=== PATIENT | male | born 1975 | race Caucasian/White ===

== ENCOUNTER 2019-08-22 17:59 | Emergency (ER) | payer OTHER ==
[~2019-08-22] VITALS: Ht 175.3 cm; Wt 120.2 kg
[~2019-08-22 17:59] MED LIST: CODACE60
== END 2019-08-22 21:10 | disposition home or self-care (01) ==
LOC: ER 17:59
DX: R10.32 Left lower quadrant pain (principal)
CPT/HCPCS: 74176; 96372; 99283-25; J1885

== ENCOUNTER 2022-10-13 16:50 | Emergency (ER) | payer OTHER ==
[~2022-10-13] VITALS: Ht 170.2 cm; Wt 114.8 kg
[~2022-10-13 16:50] MED LIST changes: -LOSA25 PO
[2022-10-13 18:40] LABS: Calcium, Ionized (POC) 1.14 mmol/L (1.10-1.46); Chloride (POC) 106 mmol/L (98-108); Creatinine (POC) 0.7 mg/dL (0.8-1.3); Glucose (ISTAT POC) 331 mg/dL (70-99); Hemoglobin (POC) 12.9 g/dL (13.5-17.5); Potassium (POC) 3.9 mmol/L (3.5-5.5); Sodium (POC) 137 mmol/L (135-148); Total CO2 (POC) 23 mmol/L (21-32)
[2022-10-13 18:44] LABS: Magnesium, Blood 2.3 mg/dL (1.6-2.4)
[2022-10-13 18:47] LABS: Albumin, Blood 4.3 g/dL (3.4-5.0); Albumin/Globulin Ratio 1.3 (0.8-1.8); Beta-hydroxybutyrate 9.1 mg/dL (0.2-2.8); Bilirubin, Total 0.5 mg/dL (0.1-1.0); Bun/Creatinine Ratio 12.3 (12.0-20.0); Calcium, Blood 8.6 mg/dL (8.5-10.1); Creatinine, Blood 0.73 mg/dL (0.60-1.20); Globulin, Blood 3.2 g/dL (2.2-4.0); Phosphorus, Blood 3.1 mg/dL (2.5-4.9); Total Protein, Blood 7.5 g/dL (6.4-8.2)
[2022-10-13 18:52] LABS: Base Excess Venous -2.3 mmol/L; Bicarbonate Venous 22.5 mmol/L (24.0-30.0); PCO2 Venous 39.3 mmHg (38-42); pH Blood Venous 7.38 (7.34-7.37)
[2022-10-13 19:07] LABS: Source, Urine Clean Catch
[2022-10-13 19:13] LABS: Appearance, Urine Clear (Clear); Bilirubin, Urine Neg (Neg); Blood, Urine Neg (Neg); Color, Urine Pale Yellow (P-Yellow); Glucose Qualitative, Urine 4+ (Neg); Ketones, Urine 3+ (Neg); Leukocyte Esterase, Urine Neg (Neg); Nitrite, Urine Neg (Neg); Protein, Urine Neg (Neg); Urobilinogen, Urine NORM (Normal)
[2022-10-13 22:34] LABS: Thyroid Stimulating Hormone 1.59 uIU/mL (0.360-4.800)
[2022-10-13] MEDS ORDERED: LOSA25 PO (22:59)
[2022-10-13 23:34] VITALS: BP 135/96
== END 2022-10-13 23:15 | disposition home or self-care (01) ==
LOC: ER 16:50
PROVIDERS: Student in an Organized Health Care Education/Training Program
DX: E11.65 Type 2 diabetes mellitus with hyperglycemia (principal); R00.0 Tachycardia, unspecified; I44.7 Left bundle-branch block, unspecified; Z79.899 Other long term (current) drug therapy; G43.909 Migraine, unspecified, not intractable, without status migrainosus; I10 Essential (primary) hypertension; F17.200 Nicotine dependence, unspecified, uncomplicated
CPT/HCPCS: 80047; 80053; 81003; 82010; 82803; 82947; 83036; 83690; 83735; 84100; 84443; 84484; 85014; 85025; 93005; 93010; 96360; 96361; 99284-25; J1815; J7030

== ENCOUNTER → 2022-10-13 | Outpatient (CLI) | payer OTHER ==
[~2022-10-13] MED LIST changes: +LOSA25 PO
[2022-10-13 16:16] LABS: BASOPHILS ABSOLUTE AUTO 0.05 K/mm3 (0.00-0.23); BASOPHILS PERCENT AUTO 1 % (0-2); EOSINOPHILS ABSOLUTE AUTO 0.27 K/mm3 (0.00-0.68); EOSINOPHILS PERCENT AUTO 3 % (0-6); Hematocrit 43.7 % (37.0-53.0); Hemoglobin 16.1 g/dL (13.5-17.5); IMMATURE GRAN ABSOLUTE AUTO 0.06 K/mm3 (0.00-0.10); IMMATURE GRAN PERCENT AUTO 1 % (0-1); LYMPHOCYTES ABSOLUTE AUTO 2.72 K/mm3 (0.84-5.20); LYMPHOCYTES PERCENT AUTO 29 % (21-46); MONOCYTES ABSOLUTE AUTO 0.55 K/mm3 (0.16-1.47); MONOCYTES PERCENT AUTO 6 % (4-13); Mean Corpuscular HGB 31.5 pg (26.0-34.0); Mean Corpuscular HGB Conc 36.8 g/dL (31.5-36.5); Mean Corpuscular Volume 86 fL (80-100); Mean Platelet Volume 10.9 fL (9.1-12.4); NEUTROPHILS ABSOLUTE AUTO 5.72 K/mm3 (1.96-9.15); NEUTROPHILS PERCENT AUTO 61 % (41-73); Platelet Count 218 K/mm3 (150-400); RDW Coefficient Variation 12.8 % (11.7-14.2); RDW Standard Deviation 39.3 fL (35.1-46.3); Red Blood Cell Count 5.11 M/mm3 (4.30-5.90); White Blood Cell Count 9.37 K/mm3 (4.00-11.30)
[2022-10-13 19:05] LABS: Albumin, Blood 4.5 g/dL (3.4-5.0); Albumin/Globulin Ratio 1.4 (0.8-1.8); Bilirubin, Total 0.8 mg/dL (0.1-1.0); Bun/Creatinine Ratio 16.4 (12.0-20.0); Calcium, Blood 8.3 mg/dL (8.5-10.1); Creatinine, Blood 0.55 mg/dL (0.60-1.20); Globulin, Blood 3.2 g/dL (2.2-4.0); Potassium, Blood 3.8 mmol/L (3.5-5.5); Total Protein, Blood 7.7 g/dL (6.4-8.2)
== END | disposition home or self-care (01) ==
LOC: LAB SHORT 16:11
PROVIDERS: Emergency Medicine
DX: R73.9 Hyperglycemia, unspecified (principal)
CPT/HCPCS: 80053; 83036; 83690; 84484; 85025

== ENCOUNTER 2024-07-09 08:11 | Day surgery (SDC) | payer OTHER ==
[~2024-07-09] VITALS: Ht 177.8 cm; Wt 120.5 kg
[~2024-07-09 08:11] MED LIST changes: +AMLO10 PO; +Crestor40 MG PO; +LOSA25 PO; +LOSA50 PO; +METO25ER PO; +NOVOLOG FL100 UNIT/2 SC; +SPIR25 PO
[2024-07-09] MEDS ORDERED: Aspir 8181 MG PO (08:29)
[2024-07-09 08:30] VITALS: BP 176/102
[2024-07-09] MEDS ORDERED: Aspirin 81 MG Chew ONE (08:35)
[2024-07-09] MEDS ORDERED: Heparin Sodium 1000 Units/ML 10ML MDV ONE (08:55)
[2024-07-09] MEDS ORDERED: NS 250 ML IV ONE (08:55)
[2024-07-09] MEDS ORDERED: NS 1,000 ML IV ONE ×2 (08:55→09:05)
[2024-07-09] MEDS ORDERED: Verapamil HCL 2.5 MG/ML 2ML Injection ONE (08:55)
[2024-07-09] MEDS ORDERED: Nitroglycerin 2 MG/20 ML BTL ONE (08:56)
[2024-07-09] MEDS ORDERED: FentaNYL Citrate 50 MCG/ML 2 ML Injection ONE (09:05)
[2024-07-09] MEDS ORDERED: Midazolam HCl 1MG / ML 2ML Vial ONE (09:05)
--- NOTE | 2024-07-09 11:02 | NUR ---
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 NO SWELLING OR REDNESS OR PAIN, OTHERWISE SOFT AND INTACT. VSS, PATIENT AMBULATED TO RESTROOM, D/C PENDING OTHERWISE.
[2024-07-09 11:30] VITALS: BP 154/94
[2024-07-09 11:45] VITALS: BP 130/92
[2024-07-09 12:00] VITALS: BP 138/89
--- NOTE | 2024-07-09 12:15 | NUR ---
REASSESSED RIGHT ARM RADIAL SITE, INTACT AND NO ACUTE CONCERNS, BEGINNING TO DEFLATE TR BAND. TEACHING PERFORMED WITH DISCHARGE INSTRUCTIONS, MEDICATIONS AT HOME AND RADIAL SITE CARE, FOLLOW UP APPOINTMENT. DENIES QUESTIONS/CONCERNS AT PRESENT TIME. DISCHARGE PENDING OTHERWISE.
[2024-07-09 12:30] VITALS: BP 131/92
[2024-07-09 13:00] VITALS: BP 140/88
--- NOTE | 2024-07-09 13:19 | NUR ---
TEACHING PERFORMED EARLIER, DEFLATED TR BAND SLOWLY AND IMPROVED SITE AT UPPER TR BAND, REMOVED, LOWER TR BAND DEFLATED AND REMOVED, SITE INTACT, NO HEMATOMA, NO OOZING, PLACED CLOTH DOT. PATIENT DRESSED, IV REMOVED, RIDE ARRIVED, PATIENT DECLINED WHEELCHAIR AND AMBULATED TO MEET RIDE AT ENTRANCE, BELONGINGS RETURNED, LEFT AMBULATORY AT 1315.
== END 2024-07-09 13:15 | disposition home or self-care (01) ==
LOC: MHTC 08:11
DX: I11.0 Hypertensive heart disease with heart failure (principal); I50.42 Chronic combined systolic (congestive) and diastolic (congestive) heart failure; I25.10 Atherosclerotic heart disease of native coronary artery without angina pectoris; I27.20 Pulmonary hypertension, unspecified; E11.8 Type 2 diabetes mellitus with unspecified complications; R94.31 Abnormal electrocardiogram [ECG] [EKG]; I44.7 Left bundle-branch block, unspecified; Z79.4 Long term (current) use of insulin; Z79.899 Other long term (current) drug therapy
CPT/HCPCS: 76937; 93456; 99152; 99153; A9270; C1769; C1887; C1894; J1644; J2250; J3010; J7030; J7050; Q9967